=== PATIENT | male | born 1940 | race Two or more races ===

== ENCOUNTER 2019-01-30 21:55 | Emergency (ER) | payer SELFPAY ==
[~2019-01-30] VITALS: Ht 167.6 cm; Wt 68.0 kg
[2019-01-30 22:19] VITALS: BP 105/59
== END 2019-01-31 01:23 | disposition left against medical advice (07) ==
LOC: ER 22:00
DX: R10.30 Lower abdominal pain, unspecified (principal); Z53.21 Procedure and treatment not carried out due to patient leaving prior to being seen by health care provider

== ENCOUNTER 2019-02-03 14:12 | Inpatient (IN) | payer MEDICARE, OTHER | END 2019-02-06 15:02 | disposition home or self-care (01) | LOC: TELE-WESTW 02-05 01:16 → ER 14:12 → TELE 18:10 → TELE-WESTW 20:36 | DX: C79.51 Secondary malignant neoplasm of bone (principal); J90 Pleural effusion, not elsewhere classified; E44.0 Moderate protein-calorie malnutrition; N17.9 Acute kidney failure, unspecified; N18.3 Chronic kidney disease, stage 3 (moderate); D53.9 Nutritional anemia, unspecified ==